=== PATIENT | female | born 1965 | race African-American/Black ===

== ENCOUNTER → 2018-11-19 | Outpatient (CLI) | payer OTHER ==
[~2018-11-19] VITALS: Ht 154.9 cm; Wt 81.6 kg
[~2018-11-19] MED LIST: COZAAR 25 MG TA25 M1 PO; FISH OIL 1,001000 M2 PO; FLEXERIL PO; MAGOX 400400 MG PO; MOBIC15 MG PO; MULTI VITAMIN1 EACH PO; OMEPRAZOLE20 M1 PO; SYNTHROID100 MC1 PO; TRAMADOL 50 MG50 MG PO; TUMS PO; VALIUM5 MG PO; VENTOLIN HFA 1818 GM INH
--- NOTE | ~2018-11-19 | HPC ---
[facility] [address] [place] [address] PAIN MANAGEMENT CONSULTATION Name: ALEJANDRA DELEON Room #: REG RADHA Pacheco.#: [id number] Admission: 11/19/18 ������������������ Attend Phys: Anurag Sanchez MD Discharge: ������������������ Date of : 67 Report #: [id number] THIS REPORT FOR: //name// CC: [facility] physician/PCP Elijah Sanchez DATE OF SERVICE: 11/19/2018 CHIEF COMPLAINT: Neck pain with radiation through the neck, back and shoulders and arm. HISTORY OF PRESENT ILLNESS: The patient is a pleasant 53-year-old who Dr. Harrison has asked us to see her today for cervical pain with radiculopathy. She has also seen Dr. Elijah Huizar in October, who ordered some testing and she has a followup appointment with him in this next month. She complains of pain at a level of 6-8/10 in her neck, back and shoulder. 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 When she is able to rest at night, she rests solidly and this is her most comfortable position. She has received no treatment for this pain in recent times. She does not take pain medication of any sort. MEDICATIONS: Reviewed include Synthroid, mag oxide, losartan, fish oil, omeprazole, Tums, multivitamins and inhaler. ALLERGIES: None. PAST MEDICAL AND SURGICAL HISTORY: Remarkable for asthma, hypertension, hyperthyroidism, and osteoarthritis of multiple joints. She has had 4 previous C-sections, thyroidectomy. She had a tubal ligation following her final . SOCIAL HISTORY: She denies tobacco, alcohol or any history of illegal drug use. 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 She has had only a few days off related to her pain. Impact pain scores show that she manages her pain fairly well, a total of . REVIEW OF SYSTEMS: Positive for fatigue, headaches, blurred vision, some loss of hearing, shortness of breath, dyspnea on exertion related to asthma. She has had constipation and wakes up most nights to go to the bathroom at least once. She complains of pain in her neck, occasional tingling and numbness sensations, but no classic radicular symptoms into the arms. [facility] [address] [address] PAIN MANAGEMENT CONSULTATION Name: ALEJANDRA DELEON Room #: REG RADHA PachecoKenyon#: [id number] Admission: 11/19/18 ������������������ Attend Phys: Anurag Sanchez MD Discharge: ������������������ Date of : 67 Report #: [id number] PHYSICAL EXAMINATION: VITAL SIGNS: She is 5 feet 1 inch, 180 pounds, BMI 34.0. Blood pressure 130/85, heart rate 86, respirations 14. HEENT: Pupils are equal, round, react to light. EOMs are intact. Mucous membranes are moist. NECK: Shows fairly good range of motion in all movements except with neck extension, which causes her to cry out and she has Lhermitte's. She has bilateral cervical myofascial tenderness and pain over the vertebral prominence. CHEST: Clear to auscultation. CARDIAC: Rhythm was regular with no audible murmur. ABDOMEN: Soft. EXTREMITIES: Deep tendon reflexes in the upper extremity are 1+ to 2+ biceps and triceps. Brachioradialis 1+. Deep tendon reflexes lower extremity are 2+ to 3+ knees and 1+ ankles bilaterally. Sensation is intact. Her gait is nonantalgic nor is ataxic. A more recent MRI is reviewed from 11/07/[address] Huizar. This shows no acute cervical spine abnormalities other than a C5-C6 left lateral recess stenosis. There is [id number] bilateral neural foraminal stenosis at C4-C5. IMPRESSION: Cervicalgia with spondylosis and radiculopathy. Much of her pain is compensatory and she also demonstrates myofascial tenderness and tightness. She does have pain with neck extension consistent with facet arthropathy. There is some radicular pain into the right shoulder and a positive Lhermitte's. RECOMMENDATIONS: I recommended epidural steroid injection for symptomatic management. This may help if there is some central canal inflammation. Potential benefits and risks of the procedure were reviewed in detail. Preauthorization is required before we can proceed with injection. The patient reports a history of previous epidural injections at Pain clinic in 2016 for similar pain with 70% Improvement. She also reports use of NSAIDS x 2 and couldn't take opioids. She has seen a chiropractor and tried massage and physical therapy. She is currently not interested in medication management. ��������������������������������������������� ���������������������������������������� By: ��������������������������������������������� 1418 0509 Anurag Sanchez MD /nt
[2018-11-19 10:30] VITALS: BP 130/85
--- NOTE | 2018-11-19 10:50 | NUR ---
Pain Clinic Assessment: 1. History of Osteoarthritis: Not Applicable History of Rheumatoid Arthritis: Not Applicable 2. Height: 5 ft. 1 in. 154.9 cm. Weight: 180.0 lb. oz. 81.648 kg. Patient's BMI: 34.0 3. Vital Signs: BP: 130/85 Pulse: 86 Resp: 14 Temp: 02 Sat: 98 ECG Mon: 4. Pain Intensity: 6 5. Fall Risk: Dizziness: Y Needs help standing or walking: N Fallen in the last 3 months: N Fall risk comments: 6. Patient on Blood Thinner: None 7. History of Hypertension: Y 8. Opioid Therapy greater than 6 weeks: N Opiate Contract Signed: 9. Risk Assessment Tool Provided: o-low 10. Functional Assessment Tool: 11. Recreational Drug Use: Never Drug Type: Tobacco Use: Never Smoker Tobacco Type: Amount or Packs/day: How Many Years: Alcohol Use: No Frequency: Quant:
== END ==
LOC: PAIN 06:54
DX: M47.22 Other spondylosis with radiculopathy, cervical region (principal); M79.10 Myalgia, unspecified site; M25.511 Pain in right shoulder; Z79.899 Other long term (current) drug therapy

== ENCOUNTER 2018-11-23 12:18 | Emergency (ER) | payer OTHER ==
[~2018-11-23] VITALS: Ht 154.9 cm; Wt 83.9 kg
[~2018-11-23 12:18] MED LIST changes: -MOBIC15 MG PO; -VALIUM5 MG PO
[2018-11-23] MEDS ORDERED: VENTOLIN HFA 1818 GM INH (12:31)
[2018-11-23 13:19] LABS: URINE BILIRUBIN NEGATIVE (Negative); URINE BLOOD TRACE (Negative); URINE CLARITY CLOUDY; URINE COLOR YELLOW; URINE GLUCOSE-RANDOM* NEGATIVE (Negative); URINE KETONES TRACE (Negative); URINE LEUKOCYTES-REFLEX NEGATIVE (Negative); URINE NITRITE-REFLEX NEGATIVE (Negative); URINE PROTEIN (DIPSTICK) 1+ (Negative); URINE SPECIFIC GRAVITY 1.015 (1.005-1.035); URINE UROBILINOGEN 0.2 E.U./dl (0.2-1.0)
[2018-11-23 13:38] VITALS: BP 135/80
[2018-11-23 13:40] LABS: CASTS None Seen /LPF (None Seen); CRYSTALS None Seen /LPF (None Seen); SQUAMOUS 4-10 Moderate /LPF (0-3)
[2018-11-23 13:42] LABS: URINE WBC-REFLEX 6-15 Few /HPF (0-5)
[2018-11-23 13:44] LABS: BACTERIA-REFLEX 1-9 Few /HPF (None Seen); URINE RBC 3-10 Few /HPF (0-2)
[2018-11-23] MEDS ORDERED: VALIUM5 MG PO (13:51)
[2018-11-23] MEDS ORDERED: MOBIC15 MG PO (13:51)
[2018-11-23 14:11] LABS: SSA (PROTEIN CONFIRMATORY) TRACE (APPROX. 5) mg/dL (Negative)
== END 2018-11-23 14:05 | disposition home or self-care (01) ==
LOC: ER 12:18
PROVIDERS: Emergency Medicine
DX: S16.1XXA Strain of muscle, fascia and tendon at neck level, initial encounter (principal); G44.209 Tension-type headache, unspecified, not intractable; E89.0 Postprocedural hypothyroidism; Z98.890 Other specified postprocedural states; Z88.1 Allergy status to other antibiotic agents; Z79.899 Other long term (current) drug therapy; X58.XXXA Exposure to other specified factors, initial encounter; Y93.89 Activity, other specified; Y92.89 Other specified places as the place of occurrence of the external cause; Y99.8 Other external cause status

== ENCOUNTER → 2018-12-03 | Outpatient (CLI) | payer OTHER ==
[~2018-12-03] VITALS: Ht 154.9 cm; Wt 89.5 kg
[~2018-12-03] MED LIST changes: +MOBIC15 MG PO; +VALIUM5 MG PO
--- NOTE | ~2018-12-03 | HPC ---
[facility] [place] [address] PAIN MANAGEMENT CONSULTATION Name: ALEJANDRA DELEON Room #: REG RADHA ArmandoKathe.#: [id number] Admission: 12/03/18 ������������������ Attend Phys: Anurag Sanchez MD Discharge: ������������������ Date of : 67 Report #: [id number] THIS REPORT FOR: //name// CC: Dr. Juan C Sanchez DATE OF SERVICE: 12/03/2018 Followup visit for cervical radiculopathy. The patient returns to the pain clinic today and has consistent symptoms with cervical radiculopathy. She has pain in her neck that radiates into her right arm and it radiates also down into the mid back in a referred pattern. She has a C5-C6 left lateral recess stenosis and a [id number] bilateral neural foraminal stenosis at 4-5. She has had previous epidural injections with some benefit at the [facility]. I started my first consultation. At that time, she had a significant compensatory myofascial tenderness and tightness. There were radicular symptoms that were mild to moderate, which have worsened since her last visit. She is here today for an epidural injection. I last saw her 2 weeks ago. Please review to that initial history and physical. There have been no significant changes in medications or in her condition. PHYSICAL EXAMINATION: Continues to show pain throughout the neck, pain radiating into the right arm and shoulder. She has a positive Lhermitte's. She has bilateral cervical myofascial tenderness and pain over the vertebral prominence. Pain at range of motion is fairly good. IMPRESSION: Cervical radiculopathy. PROCEDURE: Epidural steroid injection at C6-C7 under fluoroscopic guidance. DESCRIPTION OF PROCEDURE: She was taken to the fluoroscopic suite for treatment and placed prone. Skin prepped with ChloraPrep. Skin anesthetized over the C6-C7 interspace. A 20-gauge Tuohy epidural needle advanced on the first attempt in the epidural space with loss of resistance. There was no blood or CSF aspirated. A 1 mL of Omnipaque was injected and good spread of dye observed into the epidural space. This was followed by 3 mL of 0.5% lidocaine mixed with 80 mg of triamcinolone. She tolerated the procedure well, was observed for 45 minutes and discharged. ��������������������������������������������� ���������������������������������������� By: ��������������������������������������������� 1715 1234 Anurag Sanchez MD /nt
[2018-12-03 14:54] VITALS: BP 152/92
--- NOTE | 2018-12-03 15:04 | NUR ---
Pain Clinic Assessment: 1. History of Osteoarthritis: Not Applicable History of Rheumatoid Arthritis: Not Applicable 2. Height: 5 ft. 1 in. 154.9 cm. Weight: 197.4 lb. oz. 89.540 kg. Patient's BMI: 37.3 3. Vital Signs: BP: 152/92 Pulse: 87 Resp: 14 Temp: 02 Sat: 98 ECG Mon: 4. Pain Intensity: 6 5. Fall Risk: Dizziness: N Needs help standing or walking: N Fallen in the last 3 months: N Fall risk comments: 6. Patient on Blood Thinner: None 7. History of Hypertension: Y 8. Opioid Therapy greater than 6 weeks: N Opiate Contract Signed: 9. Risk Assessment Tool Provided: o-low 10. Functional Assessment Tool: 11. Recreational Drug Use: Never Drug Type: Tobacco Use: Never Smoker Tobacco Type: Amount or Packs/day: How Many Years: Alcohol Use: No Frequency: Quant:
== END | disposition home or self-care (01) ==
LOC: PAIN 07:01
DX: M54.12 Radiculopathy, cervical region (principal); G89.29 Other chronic pain; Z98.890 Other specified postprocedural states; Z88.8 Allergy status to other drugs, medicaments and biological substances; Z79.899 Other long term (current) drug therapy

== ENCOUNTER → 2019-01-07 | Outpatient (CLI) | payer OTHER ==
[~2019-01-07] VITALS: Ht 154.9 cm; Wt 89.2 kg
[~2019-01-07] MED LIST changes: +SYNTHROID112 MC1 PO
[2019-01-07 09:28] VITALS: BP 134/73
--- NOTE | 2019-01-07 09:41 | NUR ---
Pain Clinic Assessment: 1. History of Osteoarthritis: Not Applicable History of Rheumatoid Arthritis: Not Applicable 2. Height: 5 ft. 1 in. 154.9 cm. Weight: 196.6 lb. oz. 89.177 kg. Patient's BMI: 37.2 3. Vital Signs: BP: 134/73 Pulse: 106 Resp: 16 Temp: 02 Sat: 96 ECG Mon: 4. Pain Intensity: 8 5. Fall Risk: Dizziness: N Needs help standing or walking: N Fallen in the last 3 months: N Fall risk comments: 6. Patient on Blood Thinner: None 7. History of Hypertension: Y 8. Opioid Therapy greater than 6 weeks: N Opiate Contract Signed: 9. Risk Assessment Tool Provided: o-low 10. Functional Assessment Tool: 11. Recreational Drug Use: Never Drug Type: Tobacco Use: Never Smoker Tobacco Type: Amount or Packs/day: How Many Years: Alcohol Use: No Frequency: Quant:
--- NOTE | 2019-01-19 17:25 | HPC ---
[facility] [place] [address] [address] PAIN MANAGEMENT CONSULTATION Name: ALEJANDRA DELEON Room #: REG RADHA ArmandoKathe.#: [id number] Admission: 01/07/19 ������������������ Attend Phys: Anurag Sanchez MD Discharge: ������������������ Date of : 67 Report #: [id number] THIS REPORT FOR: //name// CC: Osiris Sanchez DATE OF SERVICE: 01/07/2019 Followup visit for cervical radiculopathy. The patient had a cervical epidural injection in my clinic on 12/03/2018. She responded beautifully for an entire week, was almost pain free and then returned to work. She says simple task such as pushing, open a door cause her pain to return. They have been making some ergonomic adjustments for her work. Pain is once again an 8/10, constant, tingling, radiating through her back, right shoulder blade and into her right arm. She describes her pain as burning, aching, cramping sensation. 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 She has been using some heat and rest for relief and is grateful for the relief provided by her last injection. We have elected to go forward with the second injection today and she will continue to use cautious movements and ergonomic adjustments at work to try and avoid recurrence. PHYSICAL EXAMINATION: VITAL SIGNS: Blood pressure 134/73, heart rate 106, and respirations 16. She is 5 feet 1 inches with a BMI of 37.2. MUSCULOSKELETAL: Cervical range of motion is limited as before in neck extension. There is pain that radiates to the right arm and shoulder. There is a positive Lhermitte's tests. She has bilateral cervical myofascial tenderness. EXTREMITIES: Reflexes in lower extremity are 2+. There is no evidence of hyperreflexia to suggest stenosis. IMPRESSION: Cervicalgia with radiculopathy at this time. Radiculopathy is on the right. There is C5-C6 left lateral recess stenosis and moderate bilateral neural foraminal stenosis at L4-L5. RECOMMENDATIONS: 1. Repeat epidural injection today. 2. Continue regular exercise as discussed. 3. Ergonomic adjustments at work. We were unable to perform the injection today due to the need for preauthorization by insurance. [place] [id number] PAIN MANAGEMENT CONSULTATION Name: ALEJANDRA DELEON Room #: REG RADHA Shalini#: [id number] Admission: 01/07/19 ������������������ Attend Phys: Anurag Sanchez MD Discharge: ������������������ Date of : 67 Report #: [id number] providing authorization will, I believe, allow us to go forward with the second injection for pain relief and improvement in day-to-day function. ��������������������������������������������� <ELECTRONICALLY SIGNED> ���������������������������������������� By: Anurag Sanchez MD ��������������������������������������������� 01/19/19 1725 1709 Anurag Sanchez MD /nt
== END ==
LOC: PAIN 06:49
DX: M48.02 Spinal stenosis, cervical region (principal); M54.12 Radiculopathy, cervical region; M48.062 Spinal stenosis, lumbar region with neurogenic claudication

== ENCOUNTER → 2019-02-11 | Outpatient (CLI) | payer OTHER ==
[~2019-02-11] VITALS: Ht 154.9 cm; Wt 88.3 kg
--- NOTE | ~2019-02-11 | HPC ---
[facility] [address] [address] [place] [address] PAIN MANAGEMENT CONSULTATION Name: ALEJANDRA DELEON Room #: REG RADHA Pacheco.#: [id number] Admission: 02/11/19 ������������������ Attend Phys: Anurag Sanchez MD Discharge: ������������������ Date of : 67 Report #: [id number] THIS REPORT FOR: //name// CC: NEHA Sanchez DATE OF SERVICE: 02/11/2019 Followup visit for cervical radiculopathy. The patient returns to pain clinic today for a third epidural injection since 12/02/2018. She has had good response to each of her previous injections. She was doing very well when she says she had to push a door open and this increased her pain dramatically. She has been back at work. She has a C5-C6 left lateral recess stenosis and a mild to moderate neural foraminal stenosis at L4-L5. MEDICATIONS: Levothyroxine, diazepam, meloxicam 15 mg daily, multivitamins, calcium, omeprazole, losartan, magnesium oxide, albuterol. PHYSICAL EXAMINATION: GENERAL: Pleasant female, in no acute distress, alert and oriented. VITAL SIGNS: Height is 5 feet 1 inch, 194 pounds, BMI 36.8. Blood pressure 142/95, heart rate 78, respirations 16. CHEST: Clear. CARDIAC: Rhythm is regular. MUSCULOSKELETAL: Neck range of motion is limited in extension, which reproduces symptoms radiating into the right shoulder and arm following the C6 distribution. Pain extends down into the fingers following the C6-C7 distribution. Deep tendon reflexes are 2+ biceps and brachioradialis. 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 Mild weakness of the biceps strength, worse on the right than the left. Triceps is normal. IMPRESSION: Cervical radiculopathy with C5-C6 left lateral recess stenosis. RECOMMENDATIONS: Cervical epidural steroid injection under fluoroscopic guidance. DESCRIPTION OF PROCEDURE: She was taken to fluoroscopic suite, placed prone, skin prepped with ChloraPrep. Skin anesthetized over C6-C7. A 20-gauge Tuohy epidural needle advanced first attempt in the epidural space with loss of resistance. There was no blood or CSF aspirated. A 1 mL of Omnipaque injected. Spread of dye observed in the epidural space followed by 3 mL of 0.5% lidocaine mixed with 80 mg of triamcinolone. She tolerated the procedure well and was [facility] [address] [place] [address] PAIN MANAGEMENT CONSULTATION Name: ALEJANDRA DELEON Room #: REG RADHA Loya#: [id number] Admission: 02/11/19 ������������������ Attend Phys: Anurag Sanchez MD Discharge: ������������������ Date of : 67 Report #: [id number] observed for 45 minutes and discharged. She has completed a series of 3 injections now over 3 months. We will not be able to perform additional injections. We will see her if necessary for medication management or other considerations. She should consider some gentle physical therapy as discussed throughout her visits. ��������������������������������������������� ���������������������������������������� By: ��������������������������������������������� 1817 0140 Anurag aSnchez MD /gerson
[2019-02-11 12:41] VITALS: BP 142/95
--- NOTE | 2019-02-11 12:48 | NUR ---
Pain Clinic Assessment: 1. History of Osteoarthritis: Not Applicable History of Rheumatoid Arthritis: Not Applicable 2. Height: 5 ft. 1 in. 154.9 cm. Weight: 194.6 lb. oz. 88.270 kg. Patient's BMI: 36.8 3. Vital Signs: BP: 142/95 Pulse: 78 Resp: 16 Temp: 02 Sat: 100 ECG Mon: 4. Pain Intensity: 7 5. Fall Risk: Dizziness: N Needs help standing or walking: N Fallen in the last 3 months: N Fall risk comments: 6. Patient on Blood Thinner: None 7. History of Hypertension: Y 8. Opioid Therapy greater than 6 weeks: N Opiate Contract Signed: 9. Risk Assessment Tool Provided: o-low 10. Functional Assessment Tool: 11. Recreational Drug Use: Never Drug Type: Tobacco Use: Never Smoker Tobacco Type: Amount or Packs/day: How Many Years: Alcohol Use: No Frequency: Quant: N
== END | disposition home or self-care (01) ==
LOC: PAIN 06:57
DX: M48.02 Spinal stenosis, cervical region (principal); M54.12 Radiculopathy, cervical region; G89.29 Other chronic pain; Z79.899 Other long term (current) drug therapy; Z98.890 Other specified postprocedural states; Z88.8 Allergy status to other drugs, medicaments and biological substances

== ENCOUNTER 2019-05-09 12:11 | Emergency (ER) | payer OTHER ==
[~2019-05-09] VITALS: Ht 154.9 cm; Wt 84.8 kg
[2019-05-09 12:30] LABS: ABSOLUTE NEUTROPHILS 5.2 thou/uL (1.4-8.2); BASOPHILS 0.7 % (0.0-2.0); EOSINOPHILS 1.5 % (0.0-3.0); HEMATOCRIT 38.8 % (37.0-47.0); LYMPHOCYTES 32.4 % (24.0-44.0); MCH 28.8 pg (26.0-34.0); MCHC 33.4 g/dL (28.0-37.0); MCV 86.2 fL (80.0-100.0); MONOCYTES 7.5 % (1.0-8.0); PLATELET COUNT 341 thou/uL (150-400); POLYS 57.9 % (36.0-66.0); RBC 4.51 mil/uL (4.20-5.00); WBC 8.9 thou/uL (4.0-11.0)
[2019-05-09 12:43] LABS: ANION GAP 10 mmol/L (7-16); BUN 10 mg/dL (7-18); CALCIUM 9.2 mg/dL (8.5-10.1); CHLORIDE 102 mmol/L (98-107); CO2 26 mmol/L (21-32); CREATININE 1.1 mg/dL (0.6-1.0); GLUCOSE 100 mg/dL (74-106); POTASSIUM 3.8 mmol/L (3.5-5.1); SODIUM 138 mmol/L (136-145)
[2019-05-09 12:51] LABS: ALBUMIN 3.8 g/dL (3.4-5.0); SGOT 26 U/L (15-37); SGPT 28 U/L (30-65); TOTAL BILIRUBIN 0.5 mg/dL (<0.1-1.0); TOTAL PROTEIN 8.3 g/dL (6.4-8.2); TROPONIN-I <0.06 ng/mL (<0.06)
[2019-05-09] MEDS ORDERED: NORCO 5-325 TA1 EAC1 PO (15:06)
[2019-05-09] MEDS ORDERED: ZOFRAN ODT4 MG PO (15:06)
[2019-05-09 15:21] VITALS: BP 157/97
--- NOTE | 2019-05-10 09:23 | EKG ---
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
== END 2019-05-09 15:22 | disposition home or self-care (01) ==
LOC: ER 12:11
PROVIDERS: Nurse Practitioner Family
DX: K44.9 Diaphragmatic hernia without obstruction or gangrene (principal); R07.89 Other chest pain; Z90.89 Acquired absence of other organs; Z98.890 Other specified postprocedural states; Z88.1 Allergy status to other antibiotic agents; Z88.6 Allergy status to analgesic agent

== ENCOUNTER 2021-04-01 11:00 | Emergency (ER) | payer OTHER ==
[~2021-04-01] VITALS: Ht 154.9 cm; Wt 83.9 kg
[~2021-04-01 11:00] MED LIST changes: +NORCO 5-325 TA1 EAC1 PO; +ZOFRAN ODT4 MG PO
[2021-04-01 11:09] VITALS: BP 162/95
[2021-04-01] MEDS ORDERED: FLEXERIL PO (12:10)
== END 2021-04-01 12:57 | disposition home or self-care (01) ==
LOC: ER 11:00
DX: G89.29 Other chronic pain (principal); M62.838 Other muscle spasm; M54.5 Low back pain; M25.552 Pain in left hip; Z90.89 Acquired absence of other organs; Z79.899 Other long term (current) drug therapy; Z88.1 Allergy status to other antibiotic agents

== ENCOUNTER 2021-06-29 08:39 | Emergency (ER) | payer OTHER ==
[~2021-06-29] VITALS: Ht 154.9 cm; Wt 86.2 kg
[2021-06-29 09:21] LABS: ABSOLUTE NEUTROPHILS 4.6 thou/uL (1.4-8.2); BASOPHILS 1.1 % (0.0-2.0); EOSINOPHILS 0.7 % (0.0-3.0); HEMATOCRIT 39.5 % (37.0-47.0); HEMOGLOBIN 12.4 gm/dL (12.0-15.0); LYMPHOCYTES 31.1 % (24.0-44.0); MCH 26.8 pg (26.0-34.0); MCHC 31.5 g/dL (28.0-37.0); MCV 85.1 fL (80.0-100.0); MONOCYTES 7.5 % (1.0-8.0); PLATELET COUNT 399 thou/uL (150-400); POLYS 59.6 % (36.0-66.0); RBC 4.64 mil/uL (4.20-5.00); RDW 16.1 % (10.5-14.5); WBC 7.6 thou/uL (4.0-11.0)
[2021-06-29 09:33] LABS: URINE BILIRUBIN NEGATIVE (Negative); URINE BLOOD TRACE (Negative); URINE CLARITY CLEAR; URINE COLOR YELLOW; URINE GLUCOSE-RANDOM* NEGATIVE (Negative); URINE KETONES NEGATIVE (Negative); URINE LEUKOCYTES-REFLEX NEGATIVE (Negative); URINE NITRITE-REFLEX NEGATIVE (Negative); URINE PROTEIN (DIPSTICK) NEGATIVE (Negative); URINE SPECIFIC GRAVITY <= 1.005 (1.005-1.035); URINE UROBILINOGEN 0.2 E.U./dl (0.2-1.0)
[2021-06-29 09:45] LABS: CALCIUM 8.7 mg/dL (8.5-10.1); POTASSIUM 3.6 mmol/L (3.5-5.1)
[2021-06-29 09:52] LABS: ALBUMIN 3.9 g/dL (3.4-5.0); TOTAL BILIRUBIN 0.5 mg/dL (0.2-1.0); TOTAL PROTEIN 8.6 g/dL (6.4-8.2)
[2021-06-29 10:16] LABS: INR 0.93; PROTIME 10.2 Seconds (10.5-12.1)
[2021-06-29] MEDS ORDERED: NORCO5 PO (12:48)
[2021-06-29] MEDS ORDERED: ZOFRAN ODT4 MG PO (12:48)
[2021-06-29 12:50] VITALS: BP 134/68
--- NOTE | 2021-06-30 11:50 | EKG ---
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 : 1965 Requested By: Ronnie Mejias Order Number: [id number] MD: Juarez Golden Measurements Intervals [place] Rate: 97 P: 53 WV: 150 QRS: 14 QRSD: 84 T: 24 QT: 351 QTc: 446 Interpretive Statements Sinus rhythm Normal tracing Compared to ECG 05/09/2019 12:15:32 ST (T wave) deviation no longer present Electronically Signed On 06-30-2021 11:50:13 RESIDENT CARE TECHNICIAN by Juarez Golden [email or web address] <ELECTRONICALLY SIGNED> By: Juarez Golden MD, [facility] 06/30/21 1150 0855 0855 Juarez Golden MD, FAC /EPI
== END 2021-06-29 13:12 | disposition home or self-care (01) ==
LOC: ER 08:39
PROVIDERS: Emergency Medicine
DX: R10.31 Right lower quadrant pain (principal); E89.0 Postprocedural hypothyroidism; Z98.890 Other specified postprocedural states; Z79.51 Long term (current) use of inhaled steroids; Z79.891 Long term (current) use of opiate analgesic; Z79.899 Other long term (current) drug therapy; Z88.8 Allergy status to other drugs, medicaments and biological substances